=== PATIENT | male | born 2005 | race Caucasian/White ===

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

== ENCOUNTER 2024-06-13 12:29 | Emergency (ER) | payer MEDICAID, SELFPAY ==
--- NOTE | 2024-06-13 12:30 | DI.RAD_ITS ---
Exam(s) XR CLAVICLE RT XR SHOULDER RT COMPLETE 2+V EXAM: XR SHOULDER RT COMPLETE 2+V and XR clavicle RT CLINICAL HISTORY: pain. TECHNIQUE: 2D digital imaging was performed of the right clavicle and shoulder. Seven images were o btained. AP, Grashey, Y-view and axillary views were obtained. COMPARISON: CR,XR XR SHOULDER RT COMPLETE 2+V from 07/28/2022 FINDINGS: BONES: No acute fracture is present. No bony destructive lesion is seen. Incidental note is made of a bone island in the glenoid. JOINTS: No dislocation present. The glenohumeral and acromioclavicular joints are well maintained. SOFT TISSUE: Normal. IMPRESSION: No acute fracture or dislocation seen in the right clavicle or right shoulder. DATA REPOSITORY: RADIATION DOSE DELIVERED:
[2024-06-13 12:38] VITALS: BP 139/74; PULSE 77; RESP 16; TEMP 36.8; O2SAT 99
[2024-06-13] MEDS: Acetaminophen 500 MG TAB 1000 MG PO (12:50)
[2024-06-13 13:39] VITALS: BP 121/66; PULSE 61; RESP 14; O2SAT 99
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
== END 2024-06-13 13:39 | disposition home or self-care (01) ==
PROVIDERS: Emergency Provider Emergency Medicine
DX: S40.011A Contusion of right shoulder, initial encounter (principal); W01.0XXA Fall on same level from slipping, tripping and stumbling without subsequent striking against object, initial encounter; Y93.72 Activity, wrestling; Y92.89 Other specified places as the place of occurrence of the external cause
CPT/HCPCS: 99283; 73000; 73030